=== PATIENT | female | born 1955 | race Caucasian/White ===

== ENCOUNTER → 2023-09-02 15:10 | Outpatient (CLI) | payer MEDICARE, BC, SELFPAY ==
[2023-09-02 16:37] LABS: Appearance Urine UA CLEAR; Bilirubin Urine UA NEGATIVE (NEGATIVE); Color Urine UA YELLOW; Glucose Urine UA NEGATIVE (Negative); Ketones Urine UA NEGATIVE (NEGATIVE); Leukocyte Esterase Urine UA NEGATIVE (NEGATIVE); Nitrite Urine UA NEGATIVE (Negative); Occult Blood Urine UA NEGATIVE (Negative); Protein Urine UA NEGATIVE (Negative); Urobilinogen Urine UA 0.2 E.U./dL (0.2)
[2023-09-02 16:52] LABS: Amorphous Sediment Urine 1+; Bacteria Urine None Seen; RBC Urine None Seen (0-5/HPF); Squamous Epithelial Cell Urine None Seen (0-5/HPF); Urine Volume 10mL (spun); WBC Urine None Seen (0-5/HPF)
[2023-09-02 16:53] LABS: Culture Indicated Urine Cult Not Indicated
[2023-09-02 18:04] LABS: Add Manual Diff / Slide Review NO; Basophils Absolute Auto 0 /uL (0-100); Basophils Percent Auto 0.5 % (0-2); Eosinophils Absolute Auto 200 /uL (0-450); Eosinophils Percent Auto 3.1 % (2-4); Hematocrit 39.2 % (36-46); Hemoglobin 13.5 g/dL (12.0-16.0); Lymphocytes Absolute Auto 2200 /uL (1100-4500); Lymphocytes Percent Auto 29.3 % (25-40); Mean Corpuscular HGB Conc 34.5 % (30-36); Mean Corpuscular Hemoglobin 31.3 PG (26-34); Mean Corpuscular Volume 90.8 fL (80-100); Monocytes Absolute Auto 400 /uL (0-900); Monocytes Percent Auto 5.4 % (3-14); Neutrophils Absolute Auto 4700 /uL (1500-7000); Neutrophils Percent Auto 61.7 % (50-75); Platelet Count 415 X10^3/uL (150-400); Red Blood Cell Count 4.32 X10^6/uL (4.0-5.2); Red Cell Distribution Width 12.1 % (11.6-14.8); White Blood Cell Count 7.5 X10^3/uL (4.5-11.0)
[2023-09-02 18:32] LABS: BUN Creatinine Ratio 31.3 (6-22); Blood Urea Nitrogen 20 mg/dL (7-17); Calcium 10.2 mg/dL (8.4-10.2); Carbon Dioxide 29 mmol/L (22-32); Chloride 102 mmol/L (98-107); Estimated Glomerular Filt Rate > 60 mL/min (>60); Glucose 95 mg/dL (80-110); HEMOLYSIS < 15 (0-50); Potassium 3.6 mmol/L (3.4-5.1); Sodium 138 mmol/L (137-145)
== END ==
PROVIDERS: PCP Family Medicine; Referring Provider Orthopaedic Surgery; Visit Provider Orthopaedic Surgery
DX: Z01.818 Encounter for other preprocedural examination (principal); R73.9 Hyperglycemia, unspecified; Z01.812 Encounter for preprocedural laboratory examination; N39.0 Urinary tract infection, site not specified
CPT/HCPCS: 36415; 80048; 81001; 83036; 85025; 93005

== ENCOUNTER 2023-11-29 09:38 | Day surgery (SDC) | payer MEDICARE, SELFPAY ==
[2023-11-21 08:41] VITALS: BMI 28.8
[2023-11-29] MEDS: LACTATED RINGERS 1,000 ML 42 ML IV (10:00)
[2023-11-29] MEDS: CELECOXIB 200 MG CAPSULE PO (10:02)
[2023-11-29] MEDS: ACETAMINOPHEN 325 MG TABLET 975 MG PO (10:02)
[2023-11-29 10:12] VITALS: BP 136/81; PULSE 87; RESP 16; TEMP 37; O2SAT 100; BMI 28.8
--- NOTE | 2023-11-29 12:04 | SUR.PREOP ---
patient's surgery canceled due to technical difficulties with equipment. Dr Porras explaining to patient. Patient understanding. Home with family.
== END 2023-11-29 09:40 | disposition home or self-care (01) ==
LOC: OR 09:40
PROVIDERS: PCP Family Medicine; Referring Provider Orthopaedic Surgery; Visit Provider Orthopaedic Surgery
DX: M16.12 Unilateral primary osteoarthritis, left hip (principal); Z53.09 Procedure and treatment not carried out because of other contraindication
CPT/HCPCS: 27130; J1100; J2250; J2405; J2704; J3010

== ENCOUNTER 2023-12-08 06:06 | Day surgery (SDC) | payer MEDICARE, BC, SELFPAY ==
[2023-12-01 09:04] VITALS: BMI 28.8
[2023-12-08] VITALS (9 sets, daily range): BP systolic 121–164; BP diastolic 66–79; PULSE 77–101; RESP 16–18; TEMP 35.6–36.8; O2SAT 96–100; BMI 29.2
--- NOTE | 2023-12-08 | DI.RAD.S_ITS ---
PROCEDURE: [id number] W PEL IF PERFORMED INDICATIONS: INTRA OP TECHNIQUE: AP pelvis with lateral view(s) of the left hip(s). COMPARISON: None. FINDINGS: Bones: Left hip arthroplasty postsurgical changes. Hardware components are in expected position. No fractures or dislocations. Pelvic ring appears intact. No suspicious bony lesions. Soft tissues: The visualized bowel gas pattern is normal. No suspicious soft tissue calcifications. Right lower quadrant surgical clips. IMPRESSION: Expected postsurgical change for left hip arthroplasty. Dictated by: Sabina Guerra MD, PhD on 12/08/2023 at 10:43 Approved by: Sabina Guerra MD, PhD on 12/08/2023 at 10:44
--- NOTE | 2023-12-08 06:00 | DI.RAD.S_ITS ---
PROCEDURE: XR HIP W PEL IF DONE LT 2V INDICATIONS: left total hip TECHNIQUE: 2 view(s) of the hip acquired. COMPARISON: None. FINDINGS: Bones: Intraoperative images related to left hip arthroplasty, with hardware components in expected positions. The visualized bony structures appear intact. Soft tissues: Overlying postoperative changes are noted. No suspicious soft tissue densities. IMPRESSION: Expected intraoperative appearance of a hip arthroplasty. Dictated by: Sabina Guerra MD, PhD on 12/08/2023 at 10:21 Approved by: Sabina Guerra MD, PhD on 12/08/2023 at 10:22
[2023-12-08] MEDS: CELECOXIB 200 MG CAPSULE PO (06:59)
[2023-12-08] MEDS: ACETAMINOPHEN 325 MG TABLET 975 MG PO (06:59)
[2023-12-08] MEDS: LACTATED RINGERS 1,000 ML 42 ML IV ×2 (06:59→09:42)
[2023-12-08] MEDS: VANCOMYCIN 1,000 MG/200 ML PIGGYBACK 200 MG IV (07:00)
--- NOTE | 2023-12-08 07:32 | PM.HP.1 ---
History of Present Illness History of Present Illness Date Patient Seen: 12/08/23 Time Patient Seen: 07:32 Chief complaint: OPB Narrative: She notes continuing pain in the left hip. She has constant pain into the left hip. There is no other change in her symptoms. Please see previous H and P. PFSH Medical History History of COVID-19 (~2021) Anxiety Depression PVC's (premature ventricular contractions) HTN (hypertension) Surgical History S/P excision of lipoma Hx of appendectomy History of hysterectomy Hx of cholecystectomy Social History household members: none Smoking Status: Never smoker alcohol intake: current Meds Home Medications and Allergies Home Medications Medication Instructions Recorded Confirmed Type acetaminophen 500 mg capsule 1,000 mg PO Q6H PRN Pain 11/21/23 12/08/23 History bupropion HCl 150 mg 24 hr tablet, 150 mg PO QAM 11/21/23 12/08/23 History extended release celecoxib 200 mg capsule (Celebrex) 200 mg PO DAILY 11/21/23 12/08/23 History duloxetine 30 mg capsule,delayed 30 mg PO BID 11/21/23 12/08/23 History release gabapentin 300 mg capsule 300 mg PO QAM 11/21/23 12/08/23 History gabapentin 300 mg capsule 600 mg PO BEDTIME 11/21/23 12/08/23 History hydrochlorothiazide 12.5 mg tablet 12.5 mg PO QAM 11/21/23 12/08/23 History lisinopril 40 mg tablet 40 mg PO DAILY 11/21/23 12/08/23 History omeprazole 20 mg tablet,delayed 20 mg PO DAILY 11/21/23 12/08/23 History release trazodone 50 mg tablet 100 mg PO BEDTIME 11/21/23 12/08/23 History Allergies Allergy/AdvReac Type Severity Reaction Status Date / Time No Known Drug Allergies Allergy Verified 12/08/23 06:55 Exam Vital Signs (past 8 hours): - 12/08/23 07:05 Temperature 98.1 F Pulse Rate 88 Respiratory Rate 17 Blood Pressure 121/69 Pulse Oximetry 97 Oxygen Delivery Method Room Air Oxygen Delivery Method Room Air Narrative Exam Narrative: HEENT is benign lungs are clear cor regular rate and rhythm abdomen soft and benign, left hip significant pain with range of motion, skin okay, neurologically intact distally calf soft distally Objective Labs Labs: X-rays show a severe left hip osteoarthritis Assessment & Plan Assessment and plan (1) Osteoarthritis of left hip: Status: Acute Plan I have recommended a left total hip arthroplasty. The procedure options risks benefits and complications were discussed in detail. Options risks benefits and complications discussed. We will proceed with a left total hip arthroplasty from an anterior approach.
--- NOTE | 2023-12-08 07:35 | PM.OP.1 ---
Operative Date/Time/Diagnoses Date of procedure: 12/08/23 Time of procedure: 08:00 Pre-op diagnosis: Severe left hip OA Post-op diagnosis: same Procedure & Clinicians Procedure: Left total hip arthroplasty anterior approach Same procedure as scheduled: Yes Indications: The patient has had progressively worsening left hip pain with radiographic changes consistent with arthritis. Non-operative management has failed and the patient has requested total hip replacement. The risks, benefits and alternatives to surgery were discussed with the patient prior to proceeding. Risks discussed included, but were not limited to, failure to relieve pain, leg length discrepancy, dislocation, stiffness, infection, nerve damage, deep venous thrombosis, pulmonary embolism, stroke, coma, heart attack, permanent paralysis and , as well as the potential need for eventual revision of the prosthetic. Surgeon: Any Porras Professor Of Languages: Dylan Wyatt Anesthesia Type: Spinal and Sedation Operative Notes Findings: Severe left hip OA, adequate bone, good stability Closure Type: primary Specimen(s): none sent Prosthetic devices, grafts, tissues, transplants, or devices: Porras and nephew R3 48, neutral poly liner,one 6.5 mm screw, polar stem size 0 standard, 32 x -3 Oxinium femoral Estimated Blood Loss (mL): 250 Procedure in detail: The patient was brought to the operating room. Patient was carefully positioned in the supine position. Time-out was performed and antibiotics were given. Anesthesia was induced. She was positioned in the on the table in order to allow hyperextension of the hip. The left lower extremity was prepped and draped in a standard sterile fashion. An anterior left hip incision was made 1 fingerbreadth lateral to the anterior superior iliac spine and extended distally towards the greater trochanter. Dissection was carried out through skin and subcutaneous tissues. Superficial hemostasis was achieved. The fascia over the tensor fascia deirdre was defined and incised with a knife. Two Allis clamps were used to grasp the fascia. Tensor fascia deirdre was retracted laterally. A gelpi retractor was placed. Dissection was carried out down along the neck. The circumflex vessels were carefully identified and cauterized with the Aqua Mantis. A PA was used during the procedure and was essential for intraoperative retraction and safe implantation of the components. There was good visualization of the femoral neck. A Cobra was placed superior to the neck and the gluteus fibers were carefully stripped from that superior aspect of the capsule. A 2nd retractor was placed along the inferior aspect of the neck. The rectus insertion along the capsule was partially released. A 3rd retractor that was then gently placed over the rim of the acetabulum under the rectus. Capsule was carefully incised and released from the intertrochanteric line circumferentially superior to the mid sagittal line and inferiorly to the mid sagittal line until the lesser trochanter was palpable. A tag stitch was placed both in the superior and inferior limb of the capsular insertion. Along the acetabulum capsule was also released up to the mid sagittal 12:00 position. A portion of the labrum was resected. A saw was used to perform an osteotomy at the level of the intertrochanteric line and the junction of the superior femoral neck leaving approximately 1 finger breath of residual inferior neck above the lesser trochanter. A 2nd cut was made along the femoral neck at the base of the head and a napkin ring of neck was removed. Corkscrew was placed in the femoral head and the head was removed without difficulty. Retractors were then repositioned around the acetabulum. Residual labrum was resected and additional osteophytes were removed. A reamer that was 4 mm below the templated size was placed by hand in the acetabulum and it was reamed to centralize the acetabulum. It was then reamed up to 2 under the templated size and fluoroscopy was brought in to confirm the position of the reaming and depth of reaming. I reamed 1 under the anticipated size. A trial cup was placed and noted that it was appropriately sized and fluoroscopy confirmed position and depth. The component was open and inserted without difficulty fluoroscopic imaging was used to confirm that the cup had been adequately seated and was well positioned. It was further stabilized with a single screw. Neutral poly liner was placed. The cup was tested and noted to be stable. Attention was then directed to the femur. The femur was gently hyperextended additional capsular release was performed as needed in order to allow adequate visualization of the proximal femur with elevation of the femur. Patient was placed in a hyperextended slightly adducted position with maximum external rotation. Box osteotome was used to check for any residual neck as well as sclerotic bone along the trochanter. Parks pepper was placed in the femur. Additional broaching was performed. Canal finder was used to determine the alignment of the canal and position. Size 1 broach was placed. The canal was then appropriately broached up to the templated size as long as there was adequate stability of the broach and serial advancement of the broach without excessive impingement. Specific attention was directed at avoiding varus attempting to direct the distal aspect of the broach more anteriorly and avoiding excessive anteversion. Trial reduction showed acceptable range of motion, good stability, no posterior impingement, mormonism of leg length and appropriate lateral shuck. I also hyperflexed the hip and checked that there was no impingement anteriorly and there was good stability with flexion, adduction and internal rotation. Marcaine and Exparel were injected. The stem was placed without difficulty. Repeat trial reduction and x-ray showed acceptable overall position, length, and no evidence of the femoral fracture. Final head was placed. Wound was meticulously irrigated with normal saline. The hip was reduced and additional Exparel and Marcaine were injected. The capsule was closed with interrupted nonabsorbable sutures. The fascia of the tensor was closed with interrupted and running Vicryl. No drain was placed. Any tensor fascia deirdre muscle that appeared to be contused or injured which was a minimal amount was carefully resected. Capsule around the tensor was injected with Exparel and Marcaine. The skin was closed with barbed stitches for the subcutaneous tissue and skin. We also used surgical glue. The wound was dressed sterilely. Brief Betadine soak was also used and was meticulously irrigated with normal saline. Patient was transferred to recovery room in satisfactory condition. Complications: none Post-operative Condition: stable Disposition: Acute Care Plan for aftercare: The patient will be maintained on a standard total hip replacement protocol with weight bearing as tolerated and anterior hip precautions. The patient will receive Aspirin and sequential compression devices for DVT prophylaxis. The patient will be discharged home when safe for the home environment.
[2023-12-08] MEDS: CEFAZOLIN 2 GM/100 ML PREMIX 100 ML IV ×3 (07:56→23:45)
[2023-12-08] MEDS: TRANEXAMIC ACID 1,000 MG VIAL 1000 MG INJ (08:06)
--- NOTE | 2023-12-08 08:16 | SUR.OPER ---
Supine on padded Hamilton table with bilateral legs secured in padded positioning boots and suspended in positioning spars, operative leg in traction per surgeon. Head on one pillow. Arm on non-operative side secured on padded armboard <90 degrees abduction. Arm on operative side padded and resting across chest then secured with tape over sheet. Padded perineal post in place per surgeon.
[2023-12-08] MEDS: BUPIVACAINE 0.25% (PF) 60 ML, EPINEPHrine 0.15 MG INJ (08:24)
[2023-12-08] MEDS: BUPIVACAINE LIPOSOME 266 MG/20 ML VIAL INJ (08:24)
[2023-12-08] MEDS: ONDANSETRON 4 MG/2 ML INJ IV (10:35)
[2023-12-08] MEDS: OXYCODONE IR 5 MG TABLET PO ×3 (10:36→19:51)
--- NOTE | 2023-12-08 12:05 | PT.IIE ---
Current Diagnoses Unilateral primary osteoarthritis, left hip (12/08/23) Surgery Performed Operation Date: 12/08/23 07:45 Actual Procedures p LEFT Total Hip Arthroplasty/Anterior Approach(Left) - Any Porras MD Surgical History (Last Reviewed 12/08/23 @ 07:33 by Any Porras MD) History of hysterectomy Hx of appendectomy Hx of cholecystectomy S/P excision of lipoma Medical History (Last Reviewed 12/08/23 @ 07:33 by Any Porras MD) Anxiety Depression History of COVID-19 (~2021) HTN (hypertension) PVC's (premature ventricular contractions) Physical Therapy Inpatient Evaluation/Re-Eval M1 PT/OT-IP Prior Functional Status Start: 12/08/23 11:21 Freq: NEEDED Status: Active Protocol: Document 12/08/23 11:22 MB (Rec: 12/08/23 12:04 MB [id number]) Medical Review Prior Functional Status Medical History Reviewed Yes Diet/Fluid Consistency Regular Communication WNLs Mobility and Gait i Activities of Daily Living and IADL's I Social History Household Members none Living Arrangements House Number of Floors (Floors) Two Floors Number of Stairs To Enter/Railing? Sister will stay with pt at d/ c. 4 steps with left rail to enter home and 13 steps with right rail to get to second floor where her bedroom is located. She will have a temporary bed on the first floor. Home Environment Standard Height Toilet,Walk in Shower Home Equipment Front Wheel Walker,Hand Held Shower,Grab Bars In Shower Employment Status Retired Additional Social History Comment BSC over toilet with arm rests M2 PT-IP Current Condition Start: 12/08/23 11:21 Freq: NEEDED Status: Active Protocol: Document 12/08/23 11:22 MB (Rec: 12/08/23 12:04 MB [id number]) Physical Therapy Current Condition Current Condition Evaluation Date 12/08/23 Treatment Diagnosis L anterior HAROON M3 PT-IP Subjective Start: 12/08/23 11:21 Freq: NEEDED Status: Active Protocol: Document 12/08/23 11:22 MB (Rec: 12/08/23 12:04 MB [id number]) Subjective Physical Therapy Visit Type Type Initial Evaluation Visit Start Time 11:22 Visit Stop Time 11:47 Number of ASSEMBLY MACHINE TOOL SETTER Visits 0 Physical Therapy Visit Comments Patient Comments Pt states that her back is bothering her and moving might feel good. Therapy Pain Assessment Pain When Pain Assessed At Rest Pain Present Pain Present Pain Reported Location Left hip Intensity 4 Scale Used Numeric (0 - 10) M4 PT-IP Mobility and Gait Start: 12/08/23 11:21 Freq: NEEDED Status: Active Protocol: Document 12/08/23 11:22 MB (Rec: 12/08/23 12:04 MB [id number]) PT-Bed Mobility Assessment Rolling Type of Rolling Roll to Left Level of Assist Standby Assistance,1 Person Assistance Supine to Sit Supine to Sit Standby Assistance,1 Person Assistance,Head of Bed Elevated,Bedrails Sit to Supine Sit to Supine Standby Assistance,1 Person Assistance,Head of Bed Elevated,Bedrails Scooting Scooting to Edge of Bed Standby Assistance Scooting Up and Down in Bed Standby Assistance PT-Transfer Assessment Sit to and From Stand Sit to and from Stand Contact Guard Assistance,1 Person Assistance,Use of Upper Extremities Equipment Transfer Assistive Device Gait Belt,Front Wheeled Walker Orthotic/Prosthetic Devices or Brace: No Transfers Transfer Destination Bed Transfer Technique Left side stepping Transfer Ability Level of Assist Contact Guard Assistance,1 Person Assistance,Use of Upper Extremities Comments Mobility Comments STS to get orthostatics and cues to push up from the bed and not the walker and pt reaches for the walker and keeps hands on the walker. Pt is severely orthostatic and symptomatic and has to sit back right after standing d/t dizziness and nausea with concern for vomiting and so BP finally read when pt sitting. LUE: supine 156/79, 82; standing 103/50, 66. Gait Assessment Gait Gait Assistance Required: Minimum Assistance Distance (Feet) 2 Able to Maintain Weight Bearing Status Yes During Gait Assistive Devices Assistive Device Gait Belt,Front Wheeled Walker Orthotic/Prosthetic Devices or Brace: No Gait Deviations General Gait Pattern Antalgic,Decreased Stride Length,Decreased Feet Clearance,Step-to Gait Factors Limiting Gait Function Factors Limiting Gait Function Decreased Activity Tolerance, Pain,Poor Balance Comments Gait Comments Pt takes side steps to the left to get up to HOB PT-Balance Assessment Sitting Balance and Reactions Static Sitting Balance Ability Good Dynamic Sitting Balance Ability Good Standing Balance and Reactions Static Standing Balance Ability Fair Dynamic Standing Balance Ability Fair Device Used RW M5 PT-IP Objective Assessments Start: 12/08/23 11:21 Freq: NEEDED Status: Active Protocol: Document 12/08/23 11:22 MB (Rec: 12/08/23 12:04 [id number]) Orientation Orientation/Cognition Level of Alertness Alert Orientation Name,Age,Birthday,Month,Date, Year,Day of Week,Place, Situation Language Function Ability No Deficits Noted Safety Awareness Understands Safety Issues Memory Description No Deficits Noted Gross Range of Motion Upper Extremity ROM Impairments Defer to OT Lower Extremity ROM Assessment Left Impaired Strength Comments Strength Comments Left hip impaired post-op and left knee and ankle are functional for mobility, edema LLE post-op Sensation Assessment Comments Sensation Comments Pt reports that her sensation is normal in her legs with palpation M6 PT-IP Treatment Start: 12/08/23 11:21 Freq: NEEDED Status: Active Protocol: Document 12/08/23 11:22 MB (Rec: 12/08/23 12:04 [id number]) Physical Therapy Treatment Exercises Exercises Ankle Pumps,Gluteal Sets,Quad Sets,Heel Slides Education Education Provided Precautions,Weight Bearing Status,Post-Op Packet,Safety M7 PT-IP Assessment and Plan Start: 12/08/23 11:21 Freq: NEEDED Status: Active Protocol: Document 12/08/23 11:22 MB (Rec: 12/08/23 12:04 [id number]) PT Summary Assessment and Plan Potential Rehabilitation Potential Good Status of Condition at Evaluation Evolving Summary Impairments Pain,ROM,Strength,Balance, Coordination,Bed Mobility, Transfers,Gait,Activity Tolerance Progress Towards Goals Slow Progress due to Medical Issues,Slow Progress due to Activity Tolerance Assessment Summary Pt is a pleasant 68 y/o female who is ready to mobilize post -op d/t back discomfort in the bed and minimal left hip pain . Pt is severely orthostatic and she must sit back on the EOB and she is nauseated. After sitting rest break and breathing, pt is able to side step up to the HOB to the left with min A and RW. Pt will have sister assistance at d/c. Recommend ongoing orthostatic assessment by nsg and up to EOB and chair with nsg as able . Goals Bed Mobility Goal Independent Transfer Goal Independent,Front Wheeled Walker Gait Goal Independent,Front Wheel Walker Gait Distance 100 Other Goals Pt will ascend and descend at least 4 steps with left rail with no more than superv assistance to allow safe home entrance. Days to Meet Goals 3 Frequency of Treatment Frequency Of Treatment Twice a Day Treatment Plan Physical Therapy Treatment Plan Bed Mobility Training,Transfer Training,Gait Training, Therapeutic Exercise,Balance Retraining,Post Op Education, Discharge Planning,Hot or Cold Pack,Neuromuscular Re-ed, Coordination Retraining,Manual Therapy Precautions Anterior Hip Precautions No Hip Extension,No Hip External Rotation Weight Bearing Status Weight Bearing Status Weight Bear as Tolerated Recommendations To Nursing Amount of Assist Needed 1 Person Assist Discharge Recommendations PT Discharge Recommendations Home with 21/02 Assist Available,Outpatient PT Transportation Needs at Discharge Private Vehicle
--- NOTE | 2023-12-08 13:34 | PT-IP ANOTE ---
Pt continues to be orthostatic and is not appropriate for PT at this time.
--- NOTE | 2023-12-08 13:37 | PC.NURSE ---
Addendum entered by Shani Mancini R.N. 12/08/23 19:11: Patients discharged was cancelled earlier as her blood pressure dropped when working with pt/ot. She is doing well. She used the bed soares x2, and will try and use the bsc later. Denies discomfort at this time and resting comfortably. Original Note: Patients dressing to l.anterior hip is cdi, patient is working with OT and worked with physical therapy earlier. Her blood pressured dropped some but came back up. She has been heplocked and she has a friend visiting. She denies discomfort at this time.
--- NOTE | 2023-12-08 13:45 | OT.IP.EVAL ---
Current Diagnoses Unilateral primary osteoarthritis, left hip (12/08/23) Surgery Performed Operation Date: 12/08/23 07:45 Actual Procedures p LEFT Total Hip Arthroplasty/Anterior Approach(Left) - Any Porras MD Past Medical History (Last Reviewed 12/08/23 @ 07:33 by Any Porras MD) Anxiety Depression History of COVID-19 (~2021) HTN (hypertension) PVC's (premature ventricular contractions) Surgical History (Last Reviewed 12/08/23 @ 07:33 by Any Porras MD) History of hysterectomy Hx of appendectomy Hx of cholecystectomy S/P excision of lipoma Occupational Therapy Inpatient Evaluation/Re-Eval M1 PT/OT-IP Prior Functional Status Start: 12/08/23 13:47 Freq: NEEDED Status: Active Protocol: Document 12/08/23 13:47 [facility] (Rec: 12/08/23 14:05 [facility] [id number]) Medical Review Prior Functional Status Medical History Reviewed Yes Diet/Fluid Consistency Regular Communication WNLs Mobility and Gait i Activities of Daily Living and IADL's Having trouble with her shoes and socks. Social History Household Members none Living Arrangements House Number of Floors (Floors) Two Floors Number of Stairs To Enter/Railing? Sister will stay with pt at d/ c. 4 steps with left rail to enter home and 13 steps with right rail to get to second floor where her bedroom is located. She will have a temporary bed on the first floor. Home Environment Standard Height Toilet,Walk in Shower Home Equipment Front Wheel Walker,Raised Toilet Seat w/Armrests,Hand Held Shower,Grab Bars In Shower Employment Status Retired M2 OT-IP Current Condition Start: 12/08/23 13:47 Freq: Status: Active Protocol: Document 12/08/23 13:47 [facility] (Rec: 12/08/23 14:05 [facility] [id number]) Occupational Therapy Current Condition Current Condition Evaluation Date 12/08/23 Treatment Diagnosis S/P L HAROON Anterior approach Diagnosis Onset Date 12/08/23 Post Operative Precautions Anterior Hip Precautions No Hip Extension,No Hip External Rotation M3 OT- IP Subjective and Pain Start: 12/08/23 13:47 Freq: Status: Active Protocol: Document 12/08/23 13:47 [facility] (Rec: 12/08/23 14:05 [facility] [id number]) OT- Subjective Occupational Therapy Visit Type Type Initial Evaluation Visit Start Time 13:15 Visit Stop Time 13:45 Occupational Therapy Visit Comments Patient Comments Pt agreed to get up. Patient/Caregiver Goals TO go home. OT Pain Assessment Pain When Pain Assessed At Rest Pain Present Pain Present Pain Reported M4 OT- IP ADL's Start: 12/08/23 13:47 Freq: Status: Active Protocol: Document 12/08/23 13:47 [facility] (Rec: 12/08/23 14:05 [facility] [id number]) OT [id number] General Evaluation Self-Feeding Ability Independent OT ADL-Grooming Comments OT Grooming Comments Not performed. OT ADL-Oral Care Comments Oral Care Comments NOt performed. OT ADL-Dressing General Eval Lower Body Dressing Ability Maximum Assistance Areas Needing Assistance Socks Comments OT Dressing Comments Pt states will not wear socks at home. Educated to be mindful of her LLE and not to cross her LLE. Also best to dress her LLE first and take out last. OT ADL-Toileting Comments OT Toileting Comments Pt not having to go at this time. Pt may benefit from a BSC at home. OT ADL-Bathing Comments OT Bathing Comments Pt may benefit form a shower chair at home. M5 OT- IP IADL's Start: 12/08/23 13:47 Freq: Status: Active Protocol: Document 12/08/23 13:47 [facility] (Rec: 12/08/23 14:05 [facility] [id number]) OT-Instrumental Activities of Daily Living Deficits IADL Deficits Identified Deficits Home Safety Awareness Awareness of Need for Assistance at Home Good Awareness Ability to Problem Solve Emergency Able to Problem Solve Situations Medication Management Medication Management No Deficits Identified Money Management Money Management No Deficits Identified Meal Preparation Meal Preparation Caregiver Provides Assist Mine Expert Mine Expert Caregiver Provides Assist M6 OT- IP Functional Cognition Start: 12/08/23 13:47 Freq: Status: Active Protocol: Document 12/08/23 13:47 [facility] (Rec: 12/08/23 14:05 [facility] [id number]) Cognitive Factors Limiting Selfcare Function Cognitive Ability Level of Alertness Alert Patient Orientation Name,Age,Birthday,Month,Date, Year,Day of Week,Place, Situation Attention Span Ability Capable of Focused Attention, Capable of Sustained Attention Ability to Follow Commands Able to Follow One Step Commands Cognitive Comments Cognitive Assessment Comments Pt able to follow commands for mobility needs. OT- Vision and Hearing OT- Hearing Assessment OT- Hearing Assessment WFL M7 OT- IP Mobility and Balance Start: 12/08/23 13:47 Freq: Status: Active Protocol: Document 12/08/23 13:47 [facility] (Rec: 12/08/23 14:05 [facility] [id number]) OT- Bed Mobility Assessment Supine to Sit Supine to Sit Assist Minimal Assistance Sit to Supine Sit to Supine Assist Minimal Assistance OT-Transfer Assessment Comments Mobility Comments COOPER for LLE to help get into and out of the bed. Education to not rollher LLE out arvind getting out of bed to to keep her feet together would be best. Also educated her to place a folded towel at her left hip to prevent her from externally rotating her hip while sleeping. BP supine 129 /75 and sitting 104/53 and very nauseous and dry heaving at this time and having to lie back down. OT- Balance Assessment Sitting Balance and Reactions Static Sitting Balance Ability Good Dynamic Sitting Balance Ability Good M8 OT- IP Objective Assessments Start: 12/08/23 13:47 Freq: Status: Active Protocol: Document 12/08/23 13:47 [facility] (Rec: 12/08/23 14:05 [facility] [id number]) OT Gross Range of Motion Upper Extremity Range of Motion Assessment Within Functional Limits OT Strength Upper Extremity Strength Assessment Within Functional Limits M9 OT- IP Assessment and Plan Start: 12/08/23 13:47 Freq: Status: Active Protocol: Document 12/08/23 13:47 [facility] (Rec: 12/08/23 14:05 [facility] [id number]) OT Summary Assessment and Plan Potential Rehabilitation Potential Good Analytic Complexity at Evaluation Low Summary OT Impairments Pain,Balance,Functional Mobility,Dressing,Toileting, Bathing,Toilet Transfers, Shower Transfers Progress Towards Goals Slow Progress due to Pain,Slow Progress due to Medical Issues,Slow Progress due to Activity Tolerance Assessment Summary Pt low complexity and main barriers steps and having hypotension and orthrostatic when sitting up bp dropped from 133/71 to 104/53. Initiated caregiver training with pt's sister and to do more tomorrow at 9AM. Pt to go home with assist and outpt PT . Goals Self-Feeding Goal Independent Grooming Goal Independent Dressing Goal Independent,Enterprise Solutions Architect,Sock Aid Toileting Goal Independent Bathing Goal Standby Assistance Toilet Transfer Goal Independent Shower Transfer Goal Independent Days to Meet Goals 5 Frequency of Treatment Frequency Of Treatment Once a Day Treatment Plan OT Treatment Plan ADL Training,Functional Mobility,Patient/Family Education,Discharge Planning Discharge Recommendations OT Discharge Recommendations Home with Assistance, Outpatient PT Home Equipment Needs BSC, shower chair Transportation Needs at Discharge Private Vehicle
[2023-12-08] MEDS: LACTATED RINGERS 1,000 ML 100 ML IV ×2 (14:07→14:41)
[2023-12-08] MEDS: ACETAMINOPHEN 325 MG TABLET 650 MG PO (19:51)
[2023-12-08] MEDS: GABAPENTIN 300 MG CAPSULE 600 MG PO (21:27)
[2023-12-08] MEDS: TRAZODONE 50 MG TABLET 100 MG PO (21:27)
[2023-12-08] MEDS: DULOXETINE 30 MG CAPSULE PO (21:28)
[2023-12-08] MEDS: ASPIRIN EC 81 MG TABLET PO (21:28)
[2023-12-08] MEDS: IBUPROFEN 400 MG TABLET PO (21:28)
[2023-12-09 00:07] VITALS: BP 137/67; PULSE 89; RESP 17; TEMP 36.6; O2SAT 97
[2023-12-09] MEDS: LACTATED RINGERS 1,000 ML 100 ML IV (00:24)
[2023-12-09] MEDS: PANTOPRAZOLE DR 20 MG TABLET PO (05:49)
[2023-12-09] MEDS: OXYCODONE IR 5 MG TABLET PO ×2 (05:49→10:06)
[2023-12-09] MEDS: ACETAMINOPHEN 325 MG TABLET 650 MG PO (05:49)
[2023-12-09 05:55] LABS: Hematocrit 33.2 % (36-46); Hemoglobin 11.3 g/dL (12.0-16.0)
[2023-12-09 05:56] VITALS: BP 150/77; PULSE 87; RESP 17; TEMP 36.3; O2SAT 99
--- NOTE | 2023-12-09 07:44 | P.DS_ITS ---
History of Present Illness History of Present Illness Chief complaint: OPB Narrative: Barabra is a pleasant 68 year old female who is POD#1 s/p left HAROON by Dr. Porras. Today she reports she is doing well, pain is moderate and well controlled with Oxycodone 5mg orally. She has her postop pain medication at home already. Patient has post-op PT appts set up already w/ our office but states her first appointment isn't for another several weeks and is requesting a referral to [facility] for her 1st few sessions. She saw PT yesterday here at the hospital. She reports she has been able to get up and ambulate around her hospital room with the use of a walker, able to get up and urinate without issue. Patient does live alone but states her sister plans to stay with her in the postop period to aid in her recovery. Denies fever, chills, chest pain, SOB, nausea, vomiting. Operative Date/Time/Diagnoses Date of procedure: 12/08/23 Time of procedure: 08:00 Pre-op diagnosis: Severe left hip OA Post-op diagnosis: same Procedure & Clinicians Procedure: Left total hip arthroplasty anterior approach Same procedure as scheduled: Yes Indications: The patient has had progressively worsening left hip pain with radiographic changes consistent with arthritis. Non-operative management has failed and the patient has requested total hip replacement. The risks, benefits and alternatives to surgery were discussed with the patient prior to proceeding. Risks discussed included, but were not limited to, failure to relieve pain, leg length discrepancy, dislocation, stiffness, infection, nerve damage, deep venous thrombosis, pulmonary embolism, stroke, coma, heart attack, permanent paralysis and , as well as the potential need for eventual revision of the prosthetic. Surgeon: Any Porras Customs Entry Clerk: Dylan Wyatt Anesthesia Type: Spinal and Sedation Discharge Providers Provider Discharge Date: 12/09/23 Primary care physician: Flynn Tejeda MD Consults: 12/08/23 06:00 Consult to Anesthesiology Routine Comment: Consulting Provider: Anesthesiologist Reason for consultation: Regional block for post operative pain control 12/08/23 11:18 Consult to Discharge Planning Routine Comment: Consult to Occupational Therapy Evaluate & Treat Comment: Physician Instructions: Evaluate and treat Consult to Physical Therapy Evaluate & Treat Comment: Physician Instructions: post op HAROON protocol Discharge provider: Anni Benitez PA-C Summary Hospital Course Discharge Diagnosis: Stable status post left total hip arthroplasty Hospital Course: Uncomplicated hospital course. Exam Vital Signs (past 8 hours): - 12/09/23 00:07 12/09/23 05:56 Temperature 97.8 F 97.4 F L Pulse Rate 89 87 Respiratory Rate 17 17 Blood Pressure 137/67 150/77 H Pulse Oximetry 97 99 Oxygen Flow Rate 0 0 Oxygen Delivery Method Room Air Oxygen Flow Rate 0 Narrative Exam Narrative: Lying comfortably in bed during our interview today. Resp Effort & Inspection: normal respiratory effort and able to speak in complete sentences Cardio Rate: regular rate Skin Other: Clean and dry Aquacel dressing intact over the left anterior hip, no drainage. Neuro General: patient alert, patient awake and patient oriented x3 Other: Sensation intact throughout the LLE with the exception of a small area of skin lateral to the anterior hip incision. Motor function intact throughout the LLE. Extrem Other: LLE: 5/5 strength with df, PF, EHL, knee flexion and extension. 4/5 strength with hip flexion. Calves soft and non-tender bilaterally. Objective Labs 12/09/23 05:30 Labs: Laboratory Results - last 24 hr 12/09/23 05:30 Hgb 11.3 L Hct 33.2 L PFSH Medical History History of COVID-19 (~2021) Anxiety Depression PVC's (premature ventricular contractions) HTN (hypertension) Surgical History S/P excision of lipoma Hx of appendectomy History of hysterectomy Hx of cholecystectomy Social History household members: none Smoking Status: Never smoker alcohol intake: current Discharge Assessment & Plan Assessment and Plan Assessment: Stable s/p left, anterior HAROON Plan of Treatment: 1) plan to discharge to home today with sister pending PT evaluation. 2) Continue multimodal pain management with ice to the hip for additional pain control. Patient has postop pain medications at home already. 3) ASA b.i.d. for DVT prophylaxis. 4) Start outpatient physical therapy to work on range of motion and mobility. A referral to PT has been sent. 5) keep dressing intact, clean, dry until 2 week postop appointment. No soaking the incision site in pools or tubs. No topical ointments or creams to the incision site. 5) Follow up at [facility] orthopedics in 2 weeks for a postop appointment and wound check. All patient's questions were answered, she demonstrates understanding and is in agreement with the plan. Call our office if any questions or concerns arise. Discharge Plan Discharge Plan Patient Disposition: Home Discharge orders & Medications Discharge Orders: Discharge (Order); Ordered 12/09/23 Ordered By: Anni Benitez Prescriptions: Continued celecoxib [Celebrex] 200 mg Capsule 200 mg PO DAILY trazodone 50 mg Tablet 100 mg PO BEDTIME gabapentin 300 mg Capsule 600 mg PO BEDTIME gabapentin 300 mg Capsule 300 mg PO QAM lisinopril 40 mg Tablet 40 mg PO DAILY acetaminophen 500 mg Capsule 1,000 mg PO Q6H PRN (Reason: Pain) bupropion HCl 150 mg Tablet Extended Release 24 Hr 150 mg PO QAM duloxetine 30 mg Capsule,Delayed Release(Dr/Ec) 30 mg PO BID hydrochlorothiazide 12.5 mg Tablet 12.5 mg PO QAM omeprazole 20 mg Tablet,Delayed Release (Dr/Ec) 20 mg PO DAILY Follow up/Referrals: Flynn Tejeda MD [Primary Care Provider] - Any Porras MD [Physician] - (2 weeks as scheduled) Diet/Activity/Treatments Diet: Diet as Tolerated Activity: WBAT, anterior hip precautions. Work on mobility with outpatient physical therapy. Cold/Heat Therapy: Ice to the hip as needed for additional pain control Skin/Wound/Dressing Care Report to your healthcare provider any signs of infection, such as:: chills, fever, night sweats, increased pain, unusual drainage and unusual redness Dressing: Keep dressing intact, clean and dry until 2 week post-op appointment. No soaking the incision site in pools or tubs. No topical ointments or creams to the incision site. Visit Report/Discharge Packet Instructions: DI for Hip Replacement, Oxycodone Stand Alone Forms: Patient Portal/API, Surgery Discharge Discharge Data Primary Care Provider: Flynn Tejeda Attending Provider: Any Porras Quality VTE Deep Vein Thrombosis/Pulmonary Embolism Present on Admission: No
[2023-12-09 07:53] VITALS: BP 125/63; PULSE 84; RESP 14; TEMP 36.3; O2SAT 97
--- NOTE | 2023-12-09 07:59 | PC.NURSE ---
Patients dressing to l.anterior hip cdi, patient is a one person assist to use the restroom. CMS wnl and her blood pressure has been more stabl when getting up.
[2023-12-09] MEDS: ASPIRIN EC 81 MG TABLET PO (08:05)
[2023-12-09] MEDS: DULOXETINE 30 MG CAPSULE PO (08:05)
[2023-12-09] MEDS: GABAPENTIN 300 MG CAPSULE PO (08:05)
[2023-12-09] MEDS: DOCUSATE 100 MG CAPSULE PO (08:05)
[2023-12-09] MEDS: hydroCHLOROthiazide 25 MG TABLET 12.5 MG PO (08:05)
[2023-12-09] MEDS: CELECOXIB 200 MG CAPSULE PO (08:07)
[2023-12-09] MEDS: buPROPion XL 150 MG TAB PO (08:07)
--- NOTE | 2023-12-09 09:02 | PT.IPTN ---
Current Diagnoses Unilateral primary osteoarthritis, left hip (12/08/23) Surgery Performed Operation Date: 12/08/23 07:45 Actual Procedures p LEFT Total Hip Arthroplasty/Anterior Approach(Left) - Any Porras MD Physical Therapy Treatment Note M2 PT-IP Current Condition Start: 12/08/23 11:21 Freq: NEEDED Status: Discharge Protocol: Document 12/08/23 11:22 MB (Rec: 12/08/23 12:04 MB [id number]) Physical Therapy Current Condition Current Condition Evaluation Date 12/08/23 Treatment Diagnosis L anterior HAROON M3 PT-IP Subjective Start: 12/08/23 11:21 Freq: NEEDED Status: Discharge Protocol: Document 12/09/23 10:39 TS (Rec: 12/09/23 10:47 TS [id number]) Subjective Physical Therapy Visit Type Type Treatment Note Visit Start Time 09:02 Visit Stop Time 09:40 Number of MAINTENANCE PORTER Visits 1 Physical Therapy Visit Comments Patient Comments Pt found resting in bed, is agreeable to PT. Therapy Pain Assessment Pain When Pain Assessed At Rest Pain Present Pain Present Pain Reported M4 PT-IP Mobility and Gait Start: 12/08/23 11:21 Freq: NEEDED Status: Discharge Protocol: Document 12/09/23 10:39 TS (Rec: 12/09/23 10:47 TS [id number]) PT-Bed Mobility Assessment Rolling Type of Rolling Roll to Left Level of Assist Standby Assistance,1 Person Assistance Supine to Sit Supine to Sit Standby Assistance,1 Person Assistance,Head of Bed Elevated,Bedrails Sit to Supine Sit to Supine Minimal Assistance,1 Person Assistance,Head of Bed Elevated,Bedrails Scooting Scooting to Edge of Bed Standby Assistance Scooting Up and Down in Bed Standby Assistance PT-Transfer Assessment Sit to and From Stand Sit to and from Stand Standby Assistance,Use of Upper Extremities Equipment Transfer Assistive Device Gait Belt,Front Wheeled Walker Orthotic/Prosthetic Devices or Brace: No Comments Mobility Comments BP in supine 120/61. Supine to sit SBA with HOB elevated. BP in sitting 132/64. STS from bed with FWW SBA, BP in standing 126/57, pt reported some lightheadedness. She ambulated in hallway ~100'SBA with FWW and emerging step thru gait. She performed steps with caregiver assist CGA with single rail and WASTE MINIMIZATION TECHNICIAN. Pt ambulated bakc to room, sit to supine into bed Clark for LLE. Pt was educated on intensity and frequency of post-op ex. Pt was left in bed, all needs met. Gait Assessment Gait Gait Assistance Required: Standby Assistance Distance (Feet) 100 Assistive Devices Assistive Device Gait Belt,Front Wheeled Walker Orthotic/Prosthetic Devices or Brace: No Gait Deviations General Gait Pattern Antalgic,Decreased Stride Length,Decreased Feet Clearance,Step-to Gait Factors Limiting Gait Function Factors Limiting Gait Function Decreased Activity Tolerance, Pain,Poor Balance Stair Climbing Assessment Evaluation Level of Assist On Stairs Contact Guard Assistance,1 Person Assistance Devices Stair Climbing Assistive Devices Left Railing,Right Railing Technique/Endurance Stair Climbing Direction Ascend and Descend Stair Climbing Technique Step to Step Number of Steps Climbed 6 PT-Balance Assessment Sitting Balance and Reactions Static Sitting Balance Ability Good Dynamic Sitting Balance Ability Good Standing Balance and Reactions Static Standing Balance Ability Fair Dynamic Standing Balance Ability Fair Device Used RW M5 PT-IP Objective Assessments Start: 12/08/23 11:21 Freq: NEEDED Status: Discharge Protocol: Document 12/08/23 11:22 MB (Rec: 12/08/23 12:04 [facility] [id number]) Orientation Orientation/Cognition Level of Alertness Alert Orientation Name,Age,Birthday,Month,Date, Year,Day of Week,Place, Situation Language Function Ability No Deficits Noted Safety Awareness Understands Safety Issues Memory Description No Deficits Noted Gross Range of Motion Upper Extremity ROM Impairments Defer to OT Lower Extremity ROM Assessment Left Impaired Strength Comments Strength Comments Left hip impaired post-op and left knee and ankle are functional for mobility, edema LLE post-op Sensation Assessment Comments Sensation Comments Pt reports that her sensation is normal in her legs with palpation M6 PT-IP Treatment Start: 12/08/23 11:21 Freq: NEEDED Status: Discharge Protocol: Document 12/09/23 10:39 TS (Rec: 12/09/23 10:47 [id number]) Physical Therapy Treatment Exercises Exercises Ankle Pumps,Gluteal Sets,Quad Sets,Heel Slides Education Education Provided Precautions,Weight Bearing Status,Post-Op Packet,Safety M7 PT-IP Assessment and Plan Start: 12/08/23 11:21 Freq: NEEDED Status: Discharge Protocol: Document 12/09/23 10:39 TS (Rec: 12/09/23 10:47 TS [id number]) PT Summary Assessment and Plan Potential Rehabilitation Potential Good Summary Impairments Pain,ROM,Strength,Balance, Coordination,Bed Mobility, Transfers,Gait,Activity Tolerance Progress Towards Goals Progressing Toward Goals Assessment Summary Barbara is making good progress with her mobility. She is SBA for most bed mobility. She progressed her gait to ~100' SBA with FWW. She performed steps x6 with assist from caregiver. Caregiver was instructed in and performed donning of gait belt, gait and stair training. PT is recommending pt return home with assist and outpatient PT. Goals Bed Mobility Goal Independent Transfer Goal Independent,Front Wheeled Walker Gait Goal Independent,Front Wheel Walker Gait Distance 100 Other Goals Pt will ascend and descend at least 4 steps with left rail with no more than superv assistance to allow safe home entrance. Days to Meet Goals 3 Frequency of Treatment Frequency Of Treatment Twice a Day Treatment Plan Physical Therapy Treatment Plan Bed Mobility Training,Transfer Training,Gait Training, Therapeutic Exercise,Balance Retraining,Post Op Education, Discharge Planning,Hot or Cold Pack,Neuromuscular Re-ed, Coordination Retraining,Manual Therapy Precautions Anterior Hip Precautions No Hip Extension,No Hip External Rotation Weight Bearing Status Weight Bearing Status Weight Bear as Tolerated Recommendations To Nursing Amount of Assist Needed Standby Assistance Discharge Recommendations PT Discharge Recommendations Home with Assistance, Outpatient PT Transportation Needs at Discharge Private Vehicle
--- NOTE | 2023-12-09 10:30 | OT.IP.TRT ---
Current Diagnoses Unilateral primary osteoarthritis, left hip (12/08/23) Surgery Performed Operation Date: 12/08/23 07:45 Actual Procedures p LEFT Total Hip Arthroplasty/Anterior Approach(Left) - Any Porras MD Occupational Therapy Treatment Note M2 OT-IP Current Condition Start: 12/08/23 13:47 Freq: Status: Discharge Protocol: Document 12/08/23 13:47 [facility] (Rec: 12/08/23 14:05 [facility] [id number]) Occupational Therapy Current Condition Current Condition Evaluation Date 12/08/23 Treatment Diagnosis S/P L HAROON Anterior approach Diagnosis Onset Date 12/08/23 Post Operative Precautions Anterior Hip Precautions No Hip Extension,No Hip External Rotation M3 OT- IP Subjective and Pain Start: 12/08/23 13:47 Freq: Status: Discharge Protocol: Document 12/09/23 11:40 [facility] (Rec: 12/09/23 11:49 [facility] [id number]) OT- Subjective Occupational Therapy Visit Type Type Treatment Note Visit Start Time 10:07 Visit Stop Time 10:30 Occupational Therapy Visit Comments Patient Comments Pt agreed to get dressed. Patient/Caregiver Goals TO go home. OT Pain Assessment Pain When Pain Assessed During Mobility Pain Present Pain Present Pain Reported M4 OT- IP ADL's Start: 12/08/23 13:47 Freq: Status: Discharge Protocol: Document 12/09/23 11:40 [facility] (Rec: 12/09/23 11:49 [facility] [id number]) OT [id number] General Evaluation Self-Feeding Ability Independent OT ADL-Dressing General Eval Upper Body Dressing Ability Independent Lower Body Dressing Ability Minimal Assistance Comments OT Dressing Comments Educated to evette LLE first and take out last. pt needing assist for shoes. Pt's sister agreed that they are going to look into Slip on Shoes. OT ADL-Toileting Comments OT Toileting Comments Pt still would benefit from a BSC as pt heavily uses her hand to assist to stand. OT ADL-Bathing Comments OT Bathing Comments Pt states would use the BSC in the shower if needed. Suggested to have the BSC there just in case for safety. M5 OT- IP IADL's Start: 12/08/23 13:47 Freq: Status: Discharge Protocol: Document 12/08/23 13:47 [facility] (Rec: 12/08/23 14:05 [facility] [id number]) OT-Instrumental Activities of Daily Living Deficits IADL Deficits Identified Deficits Home Safety Awareness Awareness of Need for Assistance at Home Good Awareness Ability to Problem Solve Emergency Able to Problem Solve Situations Medication Management Medication Management No Deficits Identified Money Management Money Management No Deficits Identified Meal Preparation Meal Preparation Caregiver Provides Assist Pe Manager Pe Manager Caregiver Provides Assist M6 OT- IP Functional Cognition Start: 12/08/23 13:47 Freq: Status: Discharge Protocol: Document 12/09/23 11:40 [facility] (Rec: 12/09/23 11:49 [facility] [id number]) Cognitive Factors Limiting Selfcare Function Cognitive Comments Cognitive Assessment Comments Pt needing vc for safety awareness of hand placement. Cues to push up from surfaces when coming to stand versus just grabbing the FWW. M7 OT- IP Mobility and Balance Start: 12/08/23 13:47 Freq: Status: Discharge Protocol: Document 12/09/23 11:40 [facility] (Rec: 12/09/23 11:49 [facility] [id number]) OT- Bed Mobility Assessment Supine to Sit Supine to Sit Assist Standby Assistance Sit to Supine Sit to Supine Assist Standby Assistance OT-Transfer Assessment Comments Mobility Comments ABle to show pt use of gait belt to asisst to move her LLE or use of her hands to assist . SBA with FWW in the room. OT- Balance Assessment Sitting Balance and Reactions Static Sitting Balance Ability Normal Dynamic Sitting Balance Ability Good Standing Balance and Reactions Static Standing Balance Ability Good Dynamic Standing Balance Ability Fair M8 OT- IP Objective Assessments Start: 12/08/23 13:47 Freq: Status: Discharge Protocol: Document 12/08/23 13:47 [facility] (Rec: 12/08/23 14:05 [facility] [id number]) OT Gross Range of Motion Upper Extremity Range of Motion Assessment Within Functional Limits OT Strength Upper Extremity Strength Assessment Within Functional Limits M9 OT- IP Assessment and Plan Start: 12/08/23 13:47 Freq: Status: Discharge Protocol: Document 12/09/23 11:40 [facility] (Rec: 12/09/23 11:49 [facility] [id number]) OT Summary Assessment and Plan Potential Rehabilitation Potential Good Analytic Complexity at Evaluation Low Summary OT Impairments Pain,Balance,Functional Mobility,Dressing,Toileting, Bathing,Toilet Transfers, Shower Transfers Progress Towards Goals Progressing Toward Goals Assessment Summary Able to go over car transfer, dressing,toileting , and showering needs with the pt and her sister. Pt to go home with assist and outpt PT. Goals Self-Feeding Goal Independent Grooming Goal Independent Dressing Goal Independent,Test Facility Engineer,Sock Aid Toileting Goal Independent Bathing Goal Standby Assistance Toilet Transfer Goal Independent Shower Transfer Goal Independent Days to Meet Goals 4 Frequency of Treatment Frequency Of Treatment Once a Day Treatment Plan OT Treatment Plan ADL Training,Functional Mobility,Patient/Family Education,Discharge Planning Discharge Recommendations OT Discharge Recommendations Home with Assistance, Outpatient PT Home Equipment Needs BSC, shower chair Transportation Needs at Discharge Private Vehicle
--- NOTE | 2023-12-09 13:18 | CM.DANOTE ---
Initial DCP Assessment Note Pt is a 79 yo female, resident of [place]. Operation Date: 12/08/23 07:45 p LEFT Total Hip Arthroplasty/Anterior Approach(Left) - Any Porras MD PCP: Flynn Tejeda Payer: [facility]/BC Out of state [place] Reviewed chart, pt discussed in multidisciplinary rounds this morning. Therapy has cleared pt for return home w/family to assist and pt has planned for home, DC order from Ortho has already been initiated this morning. No barriers identified at this time to patient's safe discharge home w/family to assist; close outpatient f/u recommended. CM team will plan to follow closely in case any DC needs or concerns arise. NATHAN Small Discharge Planning/Care Management Discharge Assessment Start: 12/09/23 13:16 Freq: Status: Active Protocol: Document 12/09/23 13:16 [facility] (Rec: 12/09/23 13:18 [facility] [id number]) Discharge Planning Assessment Assigned Track Laying Equipment Operator NATHAN Milner DPOA/Assigned Designee Name sister Mohr Contact Information [phone] Advance Directives? Yes Advance Directives on File No History Provided By Patient,Medical Record Prior Living Arrangements House Household Members none Type of transporation used prior to Drives own vehicle admit Independent with ADL's Yes Is patient alert and oriented? Yes Patient/Family Preference OP PT Therapy Barriers to Discharge No Discharge Plan Home Transportation Arrangement Family Referrals Initiated None needed
== END 2023-12-09 10:40 | disposition home or self-care (01) ==
LOC: OR 10:56 → AC 10:58
PROVIDERS: PCP Family Medicine; Referring Provider Orthopaedic Surgery; Visit Provider Orthopaedic Surgery
PROC: (CPT 27130; principal; 2023-12-08 07:45)
DX: M16.12 Unilateral primary osteoarthritis, left hip (principal)
CPT/HCPCS: 27130; 36415; 73502; 73503; 76000; 85014; 85018; 97116; 97161; 97165; 97530; 97535; C1776; C9290; J0171; J0690; J1100; J2250; J2405; J2704; J3010

== ENCOUNTER 2024-07-03 08:44 | Day surgery (SDC) | payer MEDICARE, BC, SELFPAY ==
[2023-12-08 11:22] VITALS: BMI 29.2
[2024-06-21 09:40] VITALS: BMI 30.1
[2024-07-03] VITALS (13 sets, daily range): BP systolic 91–152; BP diastolic 49–84; PULSE 70–851; RESP 11–30; TEMP 35.8–36.9; O2SAT 94–100; BMI 25.7
--- NOTE | 2024-07-03 | DI.RAD.S_ITS ---
PROCEDURE: XR HIP W PEL IF DONE RT 4V INDICATIONS: INTRA OP TECHNIQUE: AP pelvis with lateral view(s) of the right hip(s). COMPARISON: [facility], , [id number] W PEL IF PERFORMED, 12/08/2023, 10:22. FINDINGS: Multiple intraoperative fluoroscopic images of the right hip were obtained. Interval status post right total hip arthroplasty, in near anatomic alignment. Left total hip arthroplasty is partially noted. IMPRESSION: Interval postoperative changes. Dictated by: Eunice Mendoza M.D. on 07/03/2024 at 18:13 Approved by: Eunice Mendoza M.D. on 07/03/2024 at 18:14
--- NOTE | 2024-07-03 06:00 | DI.RAD.S_ITS ---
PROCEDURE: XR HIP W PEL IF DONE RT 2V INDICATIONS: total right hip TECHNIQUE: AP pelvis and lateral view of the hip acquired. COMPARISON: [facility], CR, XR PELVIS WITH BILATERAL LATERAL HIPS, 03/22/2024, 16:01. [facility], CR, XR HIP W PEL IF DONE RT 4V, 07/03/2024, 12:55. FINDINGS: Bones: Patient is status post total right hip arthroplasty, with hardware components in expected positions. The hip joint appears congruent. The visualized bony structures appear intact. Soft tissues: Overlying postoperative changes are noted. No suspicious soft tissue densities. IMPRESSION: Expected post-operative appearance of a hip arthroplasty. Dictated by: Johnathan Sheffield M.D. on 07/03/2024 at 21:51 Approved by: Johnathan Sheffield M.D. on 07/03/2024 at 21:51
[2024-07-03] MEDS: ACETAMINOPHEN 325 MG TABLET 975 MG PO (09:16)
[2024-07-03] MEDS: CELECOXIB 200 MG CAPSULE PO (09:17)
[2024-07-03] MEDS: VANCOMYCIN 1,000 MG/200 ML PIGGYBACK 200 MG IV (09:17)
[2024-07-03] MEDS: LACTATED RINGERS 1,000 ML 42 ML IV (09:17)
--- NOTE | 2024-07-03 11:06 | PM.PREOP ---
Pre-operative Note Interval Note History & Physical reviewed/Exam performed by Physician: Yes Changes to H&P: No
--- NOTE | 2024-07-03 11:07 | PM.OP.1 ---
Operative Date/Time/Diagnoses Date of procedure: 07/03/24 Time of procedure: 12:00 Pre-op diagnosis: right hip OA Post-op diagnosis: same Procedure & Clinicians Procedure: right total hip arthroplasy anterior approach Same procedure as scheduled: Yes Indications: The patient has had progressively worsening right hip pain with radiographic changes consistent with arthritis. Non-operative management has failed and the patient has requested total hip replacement. The risks, benefits and alternatives to surgery were discussed with the patient prior to proceeding. Risks discussed included, but were not limited to, failure to relieve pain, leg length discrepancy, dislocation, stiffness, infection, nerve damage, deep venous thrombosis, pulmonary embolism, stroke, coma, heart attack, permanent paralysis and , as well as the potential need for eventual revision of the prosthetic. Surgeon: Any Porras Systems Designer: Dylan Wyatt Anesthesia Type: General and Spinal Operative Notes Findings: Severe right hip OA, adequate bone, adequate stability Closure Type: primary Specimen(s): none sent Prosthetic devices, grafts, tissues, transplants, or devices: Porras and nephew R3 48, neutral poly liner,one 6.5 mm screw, size 0 polar stem, 32 x +0 Oxinium head Estimated Blood Loss (mL): 250 Blood products transfused: none Procedure in detail: The patient was brought to the operating room. Patient was carefully positioned in the supine position. Time-out was performed and antibiotics were given. Anesthesia was induced. She was positioned in the on the table in order to allow hyperextension of the hip. The right lower extremity was prepped and draped in a standard sterile fashion. An anterior right hip incision was made 1 fingerbreadth lateral to the anterior superior iliac spine and extended distally towards the greater trochanter. Dissection was carried out through skin and subcutaneous tissues. Superficial hemostasis was achieved. The fascia over the tensor fascia deirdre was defined and incised with a knife. Two Allis clamps were used to grasp the fascia. Tensor fascia deirdre was retracted laterally. A gelpi retractor was placed. Dissection was carried out down along the neck. The circumflex vessels were carefully identified and cauterized with the Aqua Mantis. A PA was used during the procedure and was essential for intraoperative retraction and safe implantation of the components. There was good visualization of the femoral neck. A Cobra was placed superior to the neck and the gluteus fibers were carefully stripped from that superior aspect of the capsule. A 2nd retractor was placed along the inferior aspect of the neck. The rectus insertion along the capsule was partially released. A 3rd retractor that was then gently placed over the rim of the acetabulum under the rectus. Capsule was carefully incised and released from the intertrochanteric line circumferentially superior to the mid sagittal line and inferiorly to the mid sagittal line until the lesser trochanter was palpable. A tag stitch was placed both in the superior and inferior limb of the capsular insertion. Along the acetabulum capsule was also released up to the mid sagittal 12:00 position. A portion of the labrum was resected. A saw was used to perform an osteotomy at the level of the intertrochanteric line and the junction of the superior femoral neck leaving approximately 1 finger breath of residual inferior neck above the lesser trochanter. A 2nd cut was made along the femoral neck at the base of the head and a napkin ring of neck was removed. Corkscrew was placed in the femoral head and the head was removed without difficulty. Retractors were then repositioned around the acetabulum. Residual labrum was resected and additional osteophytes were removed. A reamer that was 4 mm below the templated size was placed by hand in the acetabulum and it was reamed to centralize the acetabulum. It was then reamed up to 2 under the templated size and fluoroscopy was brought in to confirm the position of the reaming and depth of reaming. I reamed 1 under the anticipated size. A trial cup was placed and noted that it was appropriately sized and fluoroscopy confirmed position and depth. The component was open and inserted without difficulty fluoroscopic imaging was used to confirm that the cup had been adequately seated and was well positioned. It was further stabilized with a single screw. Neutral poly liner was placed. The cup was tested and noted to be stable. Attention was then directed to the femur. The femur was gently hyperextended additional capsular release was performed as needed in order to allow adequate visualization of the proximal femur with elevation of the femur. Patient was placed in a hyperextended slightly adducted position with maximum external rotation. Box osteotome was used to check for any residual neck as well as sclerotic bone along the trochanter. Aztec pepper was placed in the femur. Additional broaching was performed. Canal finder was used to determine the alignment of the canal and position. Size 1 broach was placed. The canal was then appropriately broached up to the templated size as long as there was adequate stability of the broach and serial advancement of the broach without excessive impingement. Specific attention was directed at avoiding varus attempting to direct the distal aspect of the broach more anteriorly and avoiding excessive anteversion. Trial reduction showed acceptable range of motion, good stability, no posterior impingement, jain of leg length and appropriate lateral shuck. I also hyperflexed the hip and checked that there was no impingement anteriorly and there was good stability with flexion, adduction and internal rotation. Marcaine and Exparel were injected. The stem was placed without difficulty. Repeat trial reduction and x-ray showed acceptable overall position, length, and no evidence of the femoral fracture. Final head was placed. Wound was meticulously irrigated with normal saline. The hip was reduced and additional Exparel and Marcaine were injected. The capsule was closed with interrupted nonabsorbable sutures. The fascia of the tensor was closed with interrupted and running Vicryl. No drain was placed. Any tensor fascia deirdre muscle that appeared to be contused or injured which was a minimal amount was carefully resected. Capsule around the tensor was injected with Exparel and Marcaine. The skin was closed with barbed stitches for the subcutaneous tissue and skin. We also used surgical glue. The wound was dressed sterilely. Brief Betadine soak was also used and was meticulously irrigated with normal saline. Patient was transferred to recovery room in satisfactory condition. Complications: none Post-operative Condition: stable Disposition: Acute Care Plan for aftercare: The patient will be maintained on a standard total hip replacement protocol with weight bearing as tolerated and anterior hip precautions. The patient will receive Aspirin and sequential compression devices for DVT prophylaxis. The patient will be discharged home when safe for the home environment.
[2024-07-03] MEDS: CEFAZOLIN 2 GM/100 ML PREMIX 100 ML IV ×3 (12:00→23:55)
[2024-07-03] MEDS: TRANEXAMIC ACID 1,000 MG VIAL 1000 MG INJ ×2 (12:05→13:50)
[2024-07-03] MEDS: BUPIVACAINE 0.25% (PF) 30 ML, EPINEPHrine 0.15 MG INJ (12:25)
[2024-07-03] MEDS: BUPIVACAINE LIPOSOME 266 MG/20 ML VIAL INJ (12:27)
--- NOTE | 2024-07-03 12:31 | SUR.OPER ---
Supine on padded [place] table with bilateral legs secured in padded positioning boots and suspended in positioning spars, operative leg in traction per surgeon. Head on one pillow. Arm on non-operative side secured on padded armboard <90 degrees abduction. Arm on operative side padded and resting across chest then secured with tape over sheet. Padded perineal post in place per surgeon.
[2024-07-03] MEDS: HYDROMORPHONE 1 MG INJ IV ×4 (14:36→14:57)
[2024-07-03] MEDS: hydrOXYzine HCL 25 MG TABLET 50 MG PO (14:45)
[2024-07-03] MEDS: OXYCODONE IR 5 MG TABLET PO ×3 (14:50→20:21)
[2024-07-03] MEDS: KETOROLAC 30 MG/ML VIAL 15 MG IV (15:10)
[2024-07-03] MEDS: GABAPENTIN 300 MG CAPSULE PO (17:28)
[2024-07-03] MEDS: LACTATED RINGERS 1,000 ML 100 ML IV (17:28)
[2024-07-03] MEDS: GABAPENTIN 600 MG TABLET PO (20:21)
[2024-07-03] MEDS: DOCUSATE 100 MG CAPSULE PO (20:21)
[2024-07-03] MEDS: ASPIRIN EC 81 MG TABLET PO (20:21)
[2024-07-03] MEDS: DULOXETINE 30 MG CAPSULE PO (20:21)
[2024-07-03] MEDS: TRAZODONE 50 MG TABLET 100 MG PO (20:21)
[2024-07-04 00:31] VITALS: BP 137/63; PULSE 92; RESP 17; TEMP 36.1; O2SAT 98
[2024-07-04 05:55] LABS: Hematocrit 30.6 % (36-46); Hemoglobin 10.4 g/dL (12.0-16.0)
[2024-07-04] MEDS: PANTOPRAZOLE DR 20 MG TABLET PO (05:59)
[2024-07-04] MEDS: OXYCODONE IR 5 MG TABLET PO ×3 (07:57→13:00)
[2024-07-04] MEDS: ACETAMINOPHEN 325 MG TABLET 650 MG PO (07:58)
--- NOTE | 2024-07-04 08:16 | PM.DS.1 ---
History of Present Illness History of Present Illness Date Patient Seen: 07/04/24 Time Patient Seen: 08:00 Chief complaint: OPB Narrative: The patient has had progressively worsening right hip pain with radiographic changes consistent with arthritis. Non-operative management has failed and the patient has requested total hip replacement. The risks, benefits and alternatives to surgery were discussed with the patient prior to proceeding. Risks discussed included, but were not limited to, failure to relieve pain, leg length discrepancy, dislocation, stiffness, infection, nerve damage, deep venous thrombosis, pulmonary embolism, stroke, coma, heart attack, permanent paralysis and , as well as the potential need for eventual revision of the prosthetic. Discharge Providers Provider Discharge Date: 07/04/24 Primary care physician: Flynn Tejeda MD Consults: 07/03/24 06:00 Consult to Anesthesiology Routine Comment: Consulting Provider: Anesthesiologist Reason for consultation: Regional block for post operative pain control 07/03/24 16:12 Consult to Discharge Planning Routine Comment: Consult to Occupational Therapy Evaluate & Treat Comment: Physician Instructions: Evaluate and treat Consult to Physical Therapy Evaluate & Treat Comment: Physician Instructions: post op HAROON protocol Discharge provider: Nathaniel Emerson PA-C Summary Hospital Course Discharge Diagnosis: right hip OA Hospital Course: Procedure: right total hip arthroplasy anterior approach Same procedure as scheduled: Yes Surgeon: Any Porras Sandwich Board Carrier: Dylan Wyatt Anesthesia Type: General and Spinal Operative Notes Findings: Severe right hip OA, adequate bone, adequate stability Closure Type: primary Specimen(s): none sent Prosthetic devices, grafts, tissues, transplants, or devices: Porras and nephew R3 48, neutral poly liner,one 6.5 mm screw, size 0 polar stem, 32 x +0 Oxinium head Estimated Blood Loss (mL): 250 Blood products transfused: none Status at Discharge Cognitive/behavioral status at discharge: oriented Functional status at discharge: uses cane/walker Time Spent with Patient Time spent: Less than 30 minutes Exam Vital Signs (past 8 hours): - 07/04/24 00:31 Temperature 97 F L Pulse Rate 92 H Respiratory Rate 17 Blood Pressure 137/63 Pulse Oximetry 98 Fraction of Inspired Oxygen 28 SaO2/FiO2 Ratio 350 Oxygen Delivery Method Nasal Cannula Oxygen Flow Rate 0 Narrative Exam Narrative: Patient is found sitting in nearby chair. She has been able to ambulate with assistance throughout the room. Localize pain and decreased sensation along the surgical site as expected 1 day post surgery. No new numbness or tingling down the extremities bilaterally. 5/5 strength in hip flexors, quadriceps, hamstrings, DF, PF, EHL bilaterally. Sensation to light touch intact throughout BLE. Calves soft, compressible, nontender. Dressing placed intraoperatively CDI. Resp Effort & Inspection: normal respiratory effort and able to speak in complete sentences Objective Labs 07/04/24 04:54 Labs: Laboratory Results - last 24 hr 07/04/24 04:54 Hgb 10.4 L Hct 30.6 L PFSH Medical History (Updated 06/21/24 @ 10:07 by Victoria Deluca RN) Anesthesia complication History of COVID-19 (~2021) Anxiety Depression PVC's (premature ventricular contractions) HTN (hypertension) Surgical History History of total left hip replacement (12/08/23) S/P excision of lipoma Hx of appendectomy History of hysterectomy Hx of cholecystectomy Social History household members: none Smoking Status: Never smoker alcohol intake: current Discharge Assessment & Plan Assessment and Plan Assessment: Status post right hip total arthroplasty Plan of Treatment: Discharge to home. Anterior hip precautions. Ambulate with assistive devices. Aspirin 81 mg twice a day for 6 weeks for DVT prevention. Patient prescribed postoperative pain medications and instructed in their use. Initiate postoperative physical therapy in 5-10 days. Follow up in clinic for wound check in 2 weeks. Discharge Plan Discharge Plan Patient Disposition: Home Provider Discharge Comment: DC pending PT approval Discharge orders & Medications Discharge Orders: Discharge (Order); Ordered 07/04/24 Ordered By: Nathaniel Emerson Prescriptions: Continued celecoxib [Celebrex] 200 mg Capsule 200 mg PO DAILY PRN (Reason: Pain) trazodone 50 mg Tablet 100 mg PO BEDTIME gabapentin 300 mg Capsule 600 mg PO BEDTIME gabapentin 300 mg Capsule 300 mg PO QAM lisinopril 40 mg Tablet 40 mg PO DAILY acetaminophen 500 mg Capsule 1,000 mg PO Q6H PRN (Reason: Pain) bupropion HCl 150 mg Tablet Extended Release 24 Hr 75 mg PO QAM duloxetine 30 mg Capsule,Delayed Release(Dr/Ec) 30 mg PO BID hydrochlorothiazide 12.5 mg Tablet 12.5 mg PO QAM omeprazole 20 mg Tablet,Delayed Release (Dr/Ec) 20 mg PO DAILY Follow up/Referrals: Dylan Wyatt PA-C [[employer]] - 07/17/24 3:10 pm (07/17 @ 3:10 with Cr PAC @ [facility] please arrive 15 min prior to your scheduled appointment time ) Flynn Tejeda MD [Primary Care Provider] - Diet/Activity/Treatments Diet: Diet as Tolerated Activity: Ambulate multiple times a day. Use a cane or walker as needed. Full weight on leg. Cold/Heat Therapy: Ice over surgical site up to 20 minutes every hour as needed Skin/Wound/Dressing Care Skin care: Leave dressing on. Okay to shower Report to your healthcare provider any signs of infection, such as:: chills, fever, night sweats, unusual drainage and unusual redness Dressing: Leave dressing in place until follow up in office. No bathing or otherwise soaking incision. Call the office if the dressing becomes saturated inside. Visit Report/Discharge Packet Instructions: DI for Hip Replacement Stand Alone Forms: Patient Portal/API, Surgery Discharge Discharge Data Primary Care Provider: Flynn Tejeda Attending Provider: Any Porras VTE Deep Vein Thrombosis/Pulmonary Embolism Present on Admission: No
[2024-07-04] MEDS: DOCUSATE 100 MG CAPSULE PO (09:20)
[2024-07-04] MEDS: DULOXETINE 30 MG CAPSULE PO (09:20)
[2024-07-04] MEDS: ASPIRIN EC 81 MG TABLET PO (09:20)
[2024-07-04] MEDS: buPROPion XL 150 MG TAB 75 MG PO (09:20)
[2024-07-04] MEDS: GABAPENTIN 300 MG CAPSULE PO (09:21)
[2024-07-04] MEDS: hydroCHLOROthiazide 25 MG TABLET 12.5 MG PO (09:21)
[2024-07-04] MEDS: lisinopriL 20 MG TABLET 40 MG PO (09:21)
--- NOTE | 2024-07-04 09:35 | OT.IP.EVAL ---
Current Diagnoses Unilateral primary osteoarthritis, right hip (07/03/24) Surgery Performed Operation Date: 07/03/24 10:45 Actual Procedures p Total Hip Arthroplasty/Anterior Approach(Right) - Any Porras MD Past Medical History (Last Updated 06/21/24 @ 10:07 by Victoria Deluca, [place]) Anesthesia complication Anxiety Depression History of COVID-19 (~2021) HTN (hypertension) PVC's (premature ventricular contractions) Surgical History (Last Reviewed 07/03/24 @ 09:25 by Gerda Lynne RN) History of hysterectomy History of total left hip replacement (12/08/23) Hx of appendectomy Hx of cholecystectomy S/P excision of lipoma Occupational Therapy Inpatient Evaluation/Re-Eval M1 PT/OT-IP Prior Functional Status Start: 07/04/24 10:14 Freq: NEEDED Status: Active Protocol: Document 07/04/24 10:14 [facility] (Rec: 07/04/24 10:29 [facility] [id number]) Medical Review Prior Functional Status Communication I Mobility and Gait Per pt was independent without a walker but had pain and still has numbness in her left hip since L HAROON on 12/08/23 . Prior Functional Level (Other details) Pt to go to her house and sister to stay with her initially and then to stay at her sister's house. Information below on pt's house set-up. Social History Household Members none Living Arrangements House Number of Floors (Floors) Two Floors Number of Stairs To Enter/Railing? 4 steps with left rail and right wall , pt able to stay on the 1st floor. 13 steps with right rail to the 2nd floor. Home Environment Standard Height Toilet,Walk in Shower Home Equipment Front Wheel Walker,Straight Cane,Hand Held Shower,Household Appliance Installer, Grab Bars Near Toilet,Grab Bars In Shower M2 OT-IP Current Condition Start: 07/04/24 10:14 Freq: Status: Active Protocol: Document 07/04/24 10:14 [facility] (Rec: 07/04/24 10:29 [facility] [id number]) Occupational Therapy Current Condition Current Condition Evaluation Date 07/04/24 Treatment Diagnosis S/P R HAROON anterior approach Diagnosis Onset Date 07/03/24 Post Operative Precautions Anterior Hip Precautions No Hip Extension,No Hip External Rotation M3 OT- IP Subjective and Pain Start: 07/04/24 10:14 Freq: Status: Active Protocol: Document 07/04/24 10:14 [facility] (Rec: 07/04/24 10:29 [facility] [id number]) OT- Subjective Occupational Therapy Visit Type Type Initial Evaluation Visit Start Time 08:55 Visit Stop Time 09:35 Occupational Therapy Visit Comments Patient Comments Pt agreed to get up and get dressed. Patient/Caregiver Goals TO go home. OT Pain Assessment Pain When Pain Assessed During Mobility Pain Present Pain Present Pain Reported Location Right Hip Intensity 6 Scale Used Numeric (0 - 10) M4 OT- IP ADL's Start: 07/04/24 10:14 Freq: Status: Active Protocol: Document 07/04/24 10:14 [facility] (Rec: 07/04/24 10:29 [facility] [id number]) OT XZN-Eubs-Cjlnwur General Evaluation Self-Feeding Ability Independent OT ADL-Grooming General Evaluation Grooming Ability Independent Comments OT Grooming Comments While standing at the sink with FWW. OT ADL-Oral Care General Eval Oral Care Ability Independent OT ADL-Dressing General Eval Upper Body Dressing Ability Independent Lower Body Dressing Ability Minimal Assistance Areas Needing Assistance Pants/Shorts,Socks Comments OT Dressing Comments Practice use of shower enclosure installer and sock aid. Emphasized for pt not to externally rotate her RLE for LB dressing needs. OT ADL-Toileting Comments OT Toileting Comments Pt not having to go. Pt is aware to be mindful of her RLE positioning needs during, and use of pads/brief at night if needed. OT ADL-Bathing Comments OT Bathing Comments Pt states did not use a shower chair prior , but would benefit from use of one. M5 OT- IP IADL's Start: 07/04/24 10:14 Freq: Status: Active Protocol: Document 07/04/24 10:14 [facility] (Rec: 07/04/24 10:29 [facility] [id number]) OT-Instrumental Activities of Daily Living Deficits IADL Deficits Identified Deficits Home Safety Awareness Awareness of Need for Assistance at Home Good Awareness Ability to Problem Solve Emergency Able to Problem Solve Situations Medication Management Medication Management Comments Pt is groggy and bets to have assist at this time. Money Management Money Management Comments Best to have assist at this time. Meal Preparation Meal Preparation Caregiver Provides Assist Rn Baby Rn Baby Caregiver Provides Assist M6 OT- IP Functional Cognition Start: 07/04/24 10:14 Freq: Status: Active Protocol: Document 07/04/24 10:14 [facility] (Rec: 07/04/24 10:29 [facility] [id number]) Cognitive Factors Limiting Selfcare Function Cognitive Ability Level of Alertness Alert Patient Orientation Name,Age,Birthday,Month,Date, Year,Day of Week,Place, Situation Attention Span Ability Capable of Focused Attention, Capable of Sustained Attention Ability to Follow Commands Able to Follow One Step Commands Cognitive Comments Cognitive Assessment Comments Pt able to follow commands for ADL and mobility needs. OT- Vision and Hearing OT- Hearing Assessment OT- Hearing Assessment WFL OT- Vision Assessment Visual Acuity Glasses All The Time Visual Attentiveness WFL Occular Pursuits WFL M7 OT- IP Mobility and Balance Start: 07/04/24 10:14 Freq: Status: Active Protocol: Document 07/04/24 10:14 [facility] (Rec: 07/04/24 10:29 [facility] [id number]) OT- Bed Mobility Assessment Supine to Sit Supine to Sit Assist Minimal Assistance Sit to Supine Sit to Supine Assist Minimal Assistance OT-Transfer Assessment Sit to and From Stand Sit to and from Stand Contact Guard Assistance Transfers Transfer Ability Standby Assistance Technique Transfer Destination Bed,Chair Transfer Technique Stand Step Pivot Devices Transfer Assistive Devices Gait Belt,Front Wheeled Walker Comments Mobility Comments COOPER for RLE management needs and pt educated to use the gait belt or cane to assist. CGA to stand to the FWW. ONce on her feet SBA. Able to do 4 steps and able to do with CGA safely. OT- Balance Assessment Sitting Balance and Reactions Static Sitting Balance Ability Good Dynamic Sitting Balance Ability Good Standing Balance and Reactions Static Standing Balance Ability Fair Dynamic Standing Balance Ability Fair M8 OT- IP Objective Assessments Start: 07/04/24 10:14 Freq: Status: Active Protocol: Document 07/04/24 10:14 [facility] (Rec: 07/04/24 10:29 [facility] [id number]) OT Gross Range of Motion Upper Extremity Range of Motion Assessment Within Functional Limits OT Strength Upper Extremity Strength Assessment Within Functional Limits M9 OT- IP Assessment and Plan Start: 07/04/24 10:14 Freq: Status: Active Protocol: Document 07/04/24 10:14 [facility] (Rec: 07/04/24 10:29 [facility] [id number]) OT Summary Assessment and Plan Potential Rehabilitation Potential Excellent Analytic Complexity at Evaluation Low Summary OT Impairments Pain,Strength,Balance, Functional Mobility,Dressing, Toileting,Bathing,Toilet Transfers,Shower Transfers Progress Towards Goals Progressing Toward Goals Assessment Summary Pt low complexity and main barriers are pain, a bit groggy and having soft BP after being up. Pt looking to go home with her sister to assist when medically stable. Pt to attend outpt PT. Goals Dressing Goal Independent,Household Appliance Installer,Sock Aid Toileting Goal Independent Bathing Goal Standby Assistance Toilet Transfer Goal Independent Shower Transfer Goal Standby Assistance,Shower Chair Days to Meet Goals 5 Frequency of Treatment Frequency Of Treatment Once a Day Other frequency 5x/week Treatment Plan OT Treatment Plan ADL Training,Functional Mobility,Patient/Family Education,Discharge Planning Discharge Recommendations OT Discharge Recommendations Home with Assistance, Outpatient PT Home Equipment Needs Shower chair Transportation Needs at Discharge Private Vehicle
--- NOTE | 2024-07-04 11:10 | PT.IIE ---
Current Diagnoses Unilateral primary osteoarthritis, right hip (07/03/24) Surgery Performed Operation Date: 07/03/24 10:45 Actual Procedures p Total Hip Arthroplasty/Anterior Approach(Right) - Any Porras MD Surgical History (Last Reviewed 07/03/24 @ 09:25 by Gerda Lynne, [place]) History of hysterectomy History of total left hip replacement (12/08/23) Hx of appendectomy Hx of cholecystectomy S/P excision of lipoma Medical History (Last Updated 06/21/24 @ 10:07 by Victoria Deluca RN) Anesthesia complication Anxiety Depression History of COVID-19 (~2021) HTN (hypertension) PVC's (premature ventricular contractions) Physical Therapy Inpatient Evaluation/Re-Eval M1 PT/OT-IP Prior Functional Status Start: 07/04/24 12:31 Freq: NEEDED Status: Active Protocol: Document 07/04/24 11:10 [facility] (Rec: 07/04/24 12:48 [facility] [id number]) Medical Review Prior Functional Status Medical History Reviewed Yes Communication able to make needs known Mobility and Gait pt stated that she was independent with all mobilities and ambulation without AD Social History Household Members none Living Arrangements House Number of Floors (Floors) Two Floors Number of Stairs To Enter/Railing? pt plans to stay on the main level of the house: 4 steps L rail to enter the house has 13 steps with L rail to 2nd floor bedroom Home Environment Standard Height Toilet,Walk in Shower Home Equipment Front Wheel Walker,Straight Cane,Hand Held Shower,Gold Leaf Layer, Grab Bars Near Toilet,Grab Bars In Shower Additional Social History Comment pt's sister will stay with her to assist her initially but afterwards, pt will be going to her sister's house M2 PT-IP Current Condition Start: 07/04/24 12:31 Freq: NEEDED Status: Active Protocol: Document 07/04/24 11:10 [facility] (Rec: 07/04/24 12:48 AB [id number]) Physical Therapy Current Condition Current Condition Evaluation Date 07/04/24 Treatment Diagnosis s/p R HAROON anterior; difficulty in walking Onset Date 07/03/24 M3 PT-IP Subjective Start: 07/04/24 12:31 Freq: NEEDED Status: Active Protocol: Document 07/04/24 11:10 [facility] (Rec: 07/04/24 12:48 AB [id number]) Subjective Physical Therapy Visit Type Type Initial Evaluation Visit Start Time 11:10 Visit Stop Time 12:25 Number of BROOMCORN SCRAPER Visits 0 Physical Therapy Visit Comments Patient Comments agreeable to do PT Therapy Pain Assessment Pain When Pain Assessed At Rest Pain Present Pain Present Pain Reported Location Right Hip Intensity 2 Scale Used increases to 7/10 with movement Pain Behaviors Crying,Guarding,Holding Area Pain Management Techniques Apply Cold,Distraction, Modification of Treatment,Re- positioning,Timing of Activity with Medications M4 PT-IP Mobility and Gait Start: 07/04/24 12:31 Freq: NEEDED Status: Active Protocol: Document 07/04/24 11:10 [facility] (Rec: 07/04/24 12:48 AB [id number]) PT-Bed Mobility Assessment Supine to Sit Supine to Sit Maximum Assistance,1 Person Assistance Sit to Supine Sit to Supine Maximum Assistance,1 Person Assistance PT-Transfer Assessment Sit to and From Stand Sit to and from Stand 1 Person Assistance,Use of Upper Extremities Equipment Transfer Assistive Device Gait Belt,Front Wheeled Walker Orthotic/Prosthetic Devices or Brace: No Transfers Transfer Destination Bed,Chair Transfer Technique ambulated Transfer Ability Level of Assist Contact Guard Assistance,1 Person Assistance,Use of Upper Extremities Comments Mobility Comments pt supine in bed and agreeable to do PT. pt's sister in room with pt. obtained PLOF and home setup. reviewed anterior hip precautions with pt and sister. BP: 113/66. pt completed supine <>sit max A and max cues. pt with c/o increase R hip pain with movement. pt repeated bed mobility x 2. pt wanting to do more bed mobility with sister assisting. caregiver training conducted. educated sister on how to use safety belt and how to assist pt. sister was able to put safety belt on. Pt completed sit to stand from EOB CGA. pt able to ambulate using FWW ~ 20 ft CGA. pt sat on chair. c/o slight dizziness. BP checked: 122/63. pt's sister assisted pt up from the chair and ambulated towards the bed ~ 20 ft using FWW CGA. pt completed bed mobility again but with sister assisting pt. pt agreed to do stair climbing. pt completed sit to stand from EOB CGA and ambulated towards the w/c ~ 25 ft using fWW CGA with sister assisting. stair climbing training. educated pt and sister on how to do stairs using L rail. pt completed up/down steps using L Rail + TITLE CLERK mod A and max cues. pt c/o dizziness afterwards. Assisted pt back to her room. BP checked: 117/57. pt ambulated w/c to chair using fWW CGA. positioned pt on the chair. set up for lunch. call light and table placed within reach. c/o increase R hip pain. informed nurse. Gait Assessment Gait Gait Assistance Required: Contact Guard Assist Distance (Feet) 25 Able to Maintain Weight Bearing Status Yes During Gait Assistive Devices Assistive Device Gait Belt,Front Wheeled Walker Orthotic/Prosthetic Devices or Brace: No Gait Deviations General Gait Pattern Antalgic,Decreased Feet Clearance Factors Limiting Gait Function Factors Limiting Gait Function Decreased Activity Tolerance, Decreased Sensation,Decreased Strength,Limited Range of Motion,Pain,Poor Balance,Poor Safety Awareness Stair Climbing Assessment Evaluation Level of Assist On Stairs Moderate Assistance,1 Person Assistance Devices Stair Climbing Assistive Devices Left Railing Technique/Endurance Stair Climbing Direction Ascend and Descend Stair Climbing Technique Step to Step Number of Steps Climbed 3 Query Text: Stair Climbing Set # Repetitions (reps) 1 Comments Stair Climbing Comments pls refer to mobility section for details PT-Balance Assessment Sitting Balance and Reactions Static Sitting Balance Ability Normal Dynamic Sitting Balance Ability Good Standing Balance and Reactions Static Standing Balance Ability Fair Dynamic Standing Balance Ability Fair Device Used FWW M5 PT-IP Objective Assessments Start: 07/04/24 12:31 Freq: NEEDED Status: Active Protocol: Document 07/04/24 11:10 [facility] (Rec: 07/04/24 12:48 AB [id number]) Orientation Orientation/Cognition Level of Alertness Alert Orientation Name,Day of Week,Situation Language Function Ability No Deficits Noted Safety Awareness Decreased Safety Awareness Memory Description No Deficits Noted Gross Range of Motion Lower Extremity ROM Assessment Within Functional Limits Strength Lower Extremity Strength Assessment Bilaterally Impaired Hip LLE: 2+/5 RLE: 3-/5 Knee 4-/5 Sensation Assessment Sensation Sensation Description Numbness Comments Sensation Comments c/o slight numbness on B thighs Muscle Tone Muscle Tone WNL Yes M6 PT-IP Treatment Start: 07/04/24 12:31 Freq: NEEDED Status: Active Protocol: Document 07/04/24 11:10 AB (Rec: 07/04/24 12:48 AB [id number]) Physical Therapy Treatment Education Education Provided Precautions,Weight Bearing Status,Safety M7 PT-IP Assessment and Plan Start: 07/04/24 12:31 Freq: NEEDED Status: Active Protocol: Document 07/04/24 11:10 [facility] (Rec: 07/04/24 12:48 AB [id number]) PT Summary Assessment and Plan Potential Rehabilitation Potential Fair Status of Condition at Evaluation Evolving Summary Impairments Pain,ROM,Strength,Balance, Coordination,Sensation,Tone, Cognition,Bed Mobility, Transfers,Gait,Activity Tolerance Assessment Summary pt is a 68 y/o F s/p R HAROON anterior approach POD 1. pt with R anterior hip precautions and is WBAT. pt requiring max A with bed mobility, CGA with transfers and ambulation using FWW and mod A for stair climbing. pt with c/o increase R hip pain affecting mobiltiy. Caregiver training conducted and pt's sister was able to safely assist pt. pt has outpt PT set up. pt plans to go home and her sister to assist her. Goals Bed Mobility Goal Independent Transfer Goal Independent,Front Wheeled Walker Gait Goal Independent,Front Wheel Walker Gait Distance 200 Other Goals up/down 4 steps L rail mod I Days to Meet Goals 5 Frequency of Treatment Frequency Of Treatment Twice a Day Treatment Plan Physical Therapy Treatment Plan Bed Mobility Training,Transfer Training,Gait Training, Therapeutic Exercise,Balance Retraining,Post Op Education, Discharge Planning,Hot or Cold Pack,Neuromuscular Re-ed, Coordination Retraining,Manual Therapy Precautions Anterior Hip Precautions No Hip Extension,No Hip External Rotation Weight Bearing Status Weight Bearing Status Weight Bear as Tolerated Allowed Weight Bearing Amount (enter % RLE WBAT or #) (%) Recommendations To Nursing Amount of Assist Needed 1 Person Assist Discharge Recommendations PT Discharge Recommendations Home with Assistance, Outpatient PT Transportation Needs at Discharge Private Vehicle
[2024-07-04] MEDS: CELECOXIB 200 MG CAPSULE PO (12:36)
--- NOTE | 2024-07-04 13:47 | CM.DANOTE ---
B DCP Assessment note Pt is a 68yo F here POD1 from right hip surgery with Dr. Porras PCP Flynn Tejeda Payer Medicare and out of state [employer] SUPERVISOR ADVICE reviewed EMR. Pt lives indep/alone in [facility]. has a walker/cane for post up but ambulates indep at baseline. plan is for sister [place] to stay with her dc. PT/OT eval=home with assistance and OP PT. Per RN report, doing well no obvious or anticipated CM needs. pt preference is to return home with sister support. SUPERVISOR ADVICE did not meet with pt at this time due to triaging needs. P: home with sister support. no identified barriers to safe dc home and OP f/u at this time. CM team will continue to follow as needed NATHAN Haney Discharge Planning/Care Management CM Discharge Assessment Start: 07/04/24 13:44 Freq: Status: Active Protocol: Document 07/04/24 13:44 SL (Rec: 07/04/24 13:47 SL [id number]) Discharge Planning Assessment Assigned Night Worker NATHAN Barrera DPOA/Assigned Designee Name sister Ho Contact Information [phone] Advance Directives? Yes Advance Directives on File No History Provided By Patient,Medical Record Prior Living Arrangements House Household Members none Type of transporation used prior to Drives own vehicle admit Independent with ADL's Yes Is patient alert and oriented? Yes DME Already Rented / Owned FWW / Walker,Cane Patient/Family Preference OP PT Therapy Barriers to Discharge No Discharge Plan Home Transportation Arrangement Family Referrals Initiated None needed Review Status In Process Please Provide Date Initial DC 07/04/24 Assessment Was Performed Next Review Type Continued Stay Review Pre-Anesthesia Assessment Start: 06/21/24 09:40 Freq: Status: Active Protocol: Document 06/21/24 09:40 [facility] (Rec: 06/21/24 10:15 CAB [id number]) Pre-Anesthesia Assessment PAC Comment Phone assessment Patient Information Reviewed Via Phone Assessment Comment Labs done per pt, not avail at time of call, EKG @ 09/02/23 Primary Care Provider Flynn Tejeda Seen Specialist in Last 12 Months Yes Specialist Seen Orthopedist Primary Language Romans[place] Preferred Language [facility] Nurse Required No Height 160.02 cm Weight 77.111 kg Body Mass Index (BMI) 30.1 Hearing Ability Normal Visual Assist Glasses Dentition Type Teeth, Natural Present Barriers to Learning None Hx Anesthesia Reactions Yes: Big drop with blood pressure after Hx Family Anesthesia Reaction No Hx Malignant Hyperthermia No Hx Blood Transfusions No Hx Blood Transfusion Reaction No Anesthesia Review Requested No Clinical Resource Director No alcohol intake current alcohol intake frequency a few times a week Smoking Status Never smoker Substance Use Type does not use Pain Present Pain Reported Musculoskeletal Symptoms Abnormal Gait,Difficulty Walking,Joint Pain History of Falling (Recent or History of No ) Patient is completely paralyzed or No completely immobile Mental Status Oriented to own ability Is patient on oxygen? No Does patient have LARIOS/SOB No Hx Sleep Apnea No CPAP/BIPAP use not prescribed Currently Taking a Beta [place]ár[place] No Can You Climb a Flight of Stairs Without Yes SOB Hx Chest Pain No Hx SOB No Hx Syncope or Dizziness No Anti-Coagulant Therapy No Has a Long Chain Quiller Tender No Cardiac Testing No Hx Pacemaker/ICD No Pacemaker Rep Required? No Cardiac Clearance Received No Diet Type At Home Regular Dysphagia No Chronic UTI No Urinary Catheter Present No Hx Urinary Self Catheterization No Diabetes No Patient No Lactating No Hx Drug Resistant Organism No Presence of External or Internal Medical Yes: Left hip prosthesis Devices Received a COVID vaccine? Yes Comment No covid symptoms in last 8 weeks Marital Status / Lives With none Current Living Arrangements House Number of Floors (Floors) Two Floors Support System Child/Children Does the Patient Have Assistance After Yes: Sister will stay w/pt to Surgery assist w/care at [place] Patient Discharge Plan Description Return Home Comment Pt requested to stay over night Feels Safe in Current Environment Yes Been Physically Hurt or Threatened By a No Person in Current Environment Do you have thoughts of harming yourself None or others? Are you currently considering suicide? No Do you have a plan to hurt yourself or No Plan others? Do You Have Any Spiritual Beliefs That No May Affect Your HC Choices? Do You Have Any Cultural Practices That No May Affect Your HC Choices? Comment Agnostic Who Can We Speak to About Patient's Care Family, friends Identifying Code for Release of Patient Declines to issue Information Health Care Proxy/Next of Kin Mekhi (son) Health Care Proxy Emergency Contact Name Tori (sister) Emergency Contact Advance Directives? Yes Power of Margarine Churn Operator No PAC Instructions Do not shave/clip surgical site,Durable medical equipment ,Medications to take/avoid, Nasal antibiotic,No ETOH/ petroleum product on skin DOS, NPO,Pre-surgical wash,Sturdy shoes/comfortable clothes,Do not bring valuables and remove jewelry
--- NOTE | 2024-07-04 13:52 | PC.NURSE ---
Patient is A&Ox4, VSS afebrile on RA. She is able to ambulate with FWW to BR x1 SBA. She does report severe pain with getting out of bed and sitting but clears PT and OT for discharge home today with sister. She is initially anxious about discharging but she is reassured about discharge plan. She verbalizes understanding of site care, activity limitations, medications, follow up/Post op appt and watching for s/sx of infection. She is escorted via w/ch by RN to private vehicle with her sister for discharge home today at approximately 1330 with all of her belongings.
== END 2024-07-04 13:35 | disposition home or self-care (01) ==
LOC: OR 08:45 → AC 08:45
PROVIDERS: PCP Family Medicine; Referring Provider Orthopaedic Surgery; Visit Provider Orthopaedic Surgery
PROC: (CPT 27130; principal; 2024-07-03 10:45)
DX: M16.11 Unilateral primary osteoarthritis, right hip (principal); I10 Essential (primary) hypertension; M25.751 Osteophyte, right hip
CPT/HCPCS: 27130; 36415; 73502; 73503; 76000; 85014; 85018; 97162; 97165; 97530; 97535; C1776; A9270; C9290; J0171; J0690; J1100; J1171; J1885; J2250; J2405; J2704; J3010